=== PATIENT | female | born 1975 | race Caucasian/White ===

== ENCOUNTER 2020-12-18 07:27 | Outpatient (CLI) | payer OTHER, SELFPAY ==
--- NOTE | 2020-12-18 07:32 | USCV_ITS ---
Ml Newton Age: 45 Gender: F : 1975 Exam Date: 12/18/2020 07:57 Ordering Phys: Vamshi Saenz DO Technologist: Constanza Mcclellan Exam Location: [facility] Indication: PE HISTORY: PT has recent PE. PROCEDURES: The venous duplex Doppler examination of both lower extremities was performed in the standard fashion. The following venous structures were evaluated: common femoral vein, profunda vein, proximal portion of the greater saphenous vein, superficial femoral vein, and the popliteal vein In addition, the posterior tibial and peroneal trunk were evaluated on Left. FINDINGS: Normal 2-D Doppler and augmentation and compressibility throughout the lower extremity venous structures. Additional imaging through the proximal calf veins also reveals no thrombus. Limited evaluation of the greater saphenous vein is patent with no thrombus. CONCLUSIONS No DVT bilateral lower extremities. Dr. Luzma Ayala DO (Electronically Signed) Final Date: 18 December 2020 08:49 S
== END 2020-12-18 07:28 | disposition home or self-care (01) ==
LOC: RAD 07:30
PROVIDERS: PCP Electrodiagnostic Medicine; Visit Provider Electrodiagnostic Medicine
DX: I26.99 Other pulmonary embolism without acute cor pulmonale (principal)
CPT/HCPCS: 93970

== ENCOUNTER 2021-04-21 14:31 | Outpatient (CLI) | payer OTHER, SELFPAY ==
--- NOTE | 2021-04-21 14:38 | XR_ITS ---
WS: [id number] Exam: XR chest 2V* [id number] Date/Time of Exam: 04/21/2021 2:38 PM Reason For Exam: ACUTE BRONCHITIS/DYSPNEA No priors. The lungs are clear and fully inflated. Normal cardiomediastinal silhouette. No pleural ef fusions. Calcified granuloma in the left lower lung zone. Regional bony elements are intact. XR/XR chest 2V* [id number] IMPRESSION: 1. No acute cardiopulmonary finding.
== END 2021-04-21 14:32 | disposition home or self-care (01) ==
PROVIDERS: PCP Electrodiagnostic Medicine; Visit Provider Electrodiagnostic Medicine
DX: J20.9 Acute bronchitis, unspecified (principal); R06.00 Dyspnea, unspecified
CPT/HCPCS: 71046

== ENCOUNTER 2021-06-08 14:33 | Outpatient (CLI) | payer OTHER, SELFPAY ==
--- NOTE | 2021-06-08 14:39 | CT_ITS ---
WS: [id number] CT CHEST ANGIOGRAPHY WITH REFORMATS HISTORY: PULMONARY EMBOLISM/TACHYCARDIA/DYSPNEA TECHNIQUE: Contiguous axial images are obtained through the chest during arterial injection of intrav enous contrast. Images are reconstructed to evaluate the pulmonary arteries. MIP imaging also reviewe d. All CT scans at [facility] use at least one of these dose optimization techniques: automat ed exposure control; mA and/or kV adjustment per patient size (includes targeted exams where dose is matched to clinical indication); or iterative reconstruction. CONTRAST: Omnipaque 350; 75 mL IV. DLP: 1054.28 mGy.cm COMPARISON: None available. Very good opacification of the pulmonary artery. There is no pulmonary emboli. Normal size pulmonary artery. Normal thoracic aorta. Heart size is normal. No RIGHT heart strain. No pericardial or pleural effusions. Benign granuloma LEFT lower lobe. No pneumonia. No mediastinal or hilar adenopathy. Bovine arch. Hepatic steatosis along the falciform ligament. The remaining upper abdomen is negative. CT/CT angio chest PE protcl [id number] IMPRESSION: 1. No pulmonary embolism. 2. No pneumonia. 3. Normal heart.
[2021-06-08] MEDS: iohexol 350 mg/mL 100 mL Btl IV ×2 (15:02→15:04)
== END 2021-06-08 14:34 | disposition home or self-care (01) ==
LOC: RAD 14:37
PROVIDERS: PCP Electrodiagnostic Medicine; Visit Provider Electrodiagnostic Medicine
DX: I26.99 Other pulmonary embolism without acute cor pulmonale (principal); R00.0 Tachycardia, unspecified; M25.562 Pain in left knee; Z89.511 Acquired absence of right leg below knee; R06.00 Dyspnea, unspecified
CPT/HCPCS: 71275

== ENCOUNTER 2021-10-12 14:43 | Outpatient (CLI) | payer OTHER, SELFPAY ==
--- NOTE | 2021-10-12 14:50 | MM_ITS ---
WS: [id number] BILATERAL 3D TOMOSYNTHESIS DIGITAL SCREENING MAMMOGRAPHY WITH CAD CLINICAL INFORMATION: SCREENING HISTORY: Screening mammogram. No current complaints. COMPARISON: TECHNIQUE: Bilateral CC and MLO views. FINDINGS: The breasts are composed of heterogeneous fibroglandular density tissue, which can limit the detectio n of small underlying mass lesions. A few incidental punctate calcifications. Vascular calcification. No suspicious mass, asymmetry, calcifications, or architectural distortion. No evidence of malignanc y. MM/[place] [id number] IMPRESSION: BI-RADS: 2-Benign FOLLOW UP: 1 Year Follow-up Recommend return to annual screening mammography.
== END 2021-10-12 14:44 | disposition home or self-care (01) ==
LOC: RAD 14:48
PROVIDERS: PCP Electrodiagnostic Medicine; Visit Provider Electrodiagnostic Medicine
DX: Z12.31 Encounter for screening mammogram for malignant neoplasm of breast (principal)
CPT/HCPCS: 77063; 77067

== ENCOUNTER 2022-08-01 07:55 | Outpatient (CLI) | payer MEDICAID, SELFPAY ==
--- NOTE | 2022-08-01 08:06 | NM_ITS ---
WS: [id number] THREE-PHASE BONE SCAN HISTORY: LEFT KNEE PAIN COMPARISON: LEFT knee radiograph 05/24/2022 Patient is is injected with 26.1 mCi Tc99m HDP intravenously. Immediate angiographic phase imaging is performed over the area of concern. Static blood pool imaging also performed. Two-hour whole-body sc intigrams performed in anterior and posterior projections. Additional large field of view imaging sub mitted as necessary. Angiographic and blood pool phase imaging is normal. No asymmetry involving the knee joints. Patient has a [id number] amputation on the RIGHT. By history recent surgery involving the RIGHT a mputation. There is a focal area of increased uptake at the RIGHT amputation site which may be from r ecent debridement. Correlate with recent procedure. On the two-hour delayed imaging there is very slight increased uptake involving the LEFT femoral cond yles and along the tibial plateau. There is no increased uptake along the tip of the LEFT tibial exte nsion. Normal soft tissue uptake. Normal activity in the kidneys. NM/NM bone 3 phase [id number] IMPRESSION: 1. No osteomyelitis or cellulitis LEFT knee prosthesis. 2. There minimal uptake around the prosthesis of the LEFT knee. This can be se en in recent postoperative states. Increased uptake can be evident greater than a year post procedure. Mild early loosening may appear similar. No lucency radha rounding the prosthesis on the recent radiograph from 06/01/2022. 3. Focal increased uptake involving the tip of the RIGHT below the knee prosth esis. May be due to recent procedure such as debridement.
== END 2022-08-01 07:56 | disposition home or self-care (01) ==
LOC: RAD 08:03
PROVIDERS: PCP Electrodiagnostic Medicine; Visit Provider Orthopaedic Surgery
DX: M17.11 Unilateral primary osteoarthritis, right knee (principal)
CPT/HCPCS: 78315; A9561

== ENCOUNTER 2022-12-16 06:00 | Outpatient (CLI) | payer MEDICAID, SELFPAY | END 2022-12-16 06:01 | disposition home or self-care (01) | LOC: SPT 12-19 13:28 | PROVIDERS: PCP Electrodiagnostic Medicine; Visit Provider Nurse Practitioner Family | DX: Z46.89 Encounter for fitting and adjustment of other specified devices (principal); S52.124D Nondisplaced fracture of head of right radius, subsequent encounter for closed fracture with routine healing; X58.XXXD Exposure to other specified factors, subsequent encounter | CPT/HCPCS: 97760; L3761 ==

== ENCOUNTER → 2022-12-16 10:36 | Outpatient (BNVA) | payer MEDICAID, SELFPAY | PROVIDERS: PCP Electrodiagnostic Medicine; Visit Provider Nurse Practitioner Family | DX: S52.121A Displaced fracture of head of right radius, initial encounter for closed fracture (principal); W17.89XA Other fall from one level to another, initial encounter | CPT/HCPCS: 73070 ==

== ENCOUNTER → 2022-12-29 10:40 | Outpatient (BNVA) | payer MEDICAID, SELFPAY | PROVIDERS: PCP Electrodiagnostic Medicine; Visit Provider Nurse Practitioner Family | DX: S52.121A Displaced fracture of head of right radius, initial encounter for closed fracture (principal); X58.XXXA Exposure to other specified factors, initial encounter | CPT/HCPCS: 73080; 73110 ==

== ENCOUNTER → 2023-01-19 10:13 | Outpatient (BNVA) | payer MEDICAID, SELFPAY | PROVIDERS: PCP Electrodiagnostic Medicine; Visit Provider Nurse Practitioner Family | DX: S52.121A Displaced fracture of head of right radius, initial encounter for closed fracture (principal); S62.001A Unspecified fracture of navicular [scaphoid] bone of right wrist, initial encounter for closed fracture; X58.XXXA Exposure to other specified factors, initial encounter | CPT/HCPCS: 73070; 73110 ==

== ENCOUNTER → 2023-02-16 10:13 | Outpatient (BNVA) | payer MEDICAID, SELFPAY | PROVIDERS: PCP Electrodiagnostic Medicine; Visit Provider Nurse Practitioner Family | DX: S52.121A Displaced fracture of head of right radius, initial encounter for closed fracture (principal); S62.001A Unspecified fracture of navicular [scaphoid] bone of right wrist, initial encounter for closed fracture; X58.XXXA Exposure to other specified factors, initial encounter | CPT/HCPCS: 73070; 73110 ==

== ENCOUNTER → 2023-03-23 11:25 | Outpatient (BNVA) | payer MEDICAID, SELFPAY | PROVIDERS: PCP Electrodiagnostic Medicine; Visit Provider Nurse Practitioner | DX: S62.024D Nondisplaced fracture of middle third of navicular [scaphoid] bone of right wrist, subsequent encounter for fracture with routine healing; S52.124D Nondisplaced fracture of head of right radius, subsequent encounter for closed fracture with routine healing; M77.11 Lateral epicondylitis, right elbow; W10.9XXD Fall (on) (from) unspecified stairs and steps, subsequent encounter | CPT/HCPCS: 73070; 73110 ==

== ENCOUNTER 2023-06-29 08:19 | Emergency (ER) | payer MEDICAID, SELFPAY ==
--- NOTE | 2023-06-29 08:22 | XR_ITS ---
WS: [id number] XR knee LT 3V* [id number] REASON FOR EXAM: pain FINDINGS: Total left knee arthroplasty. Compared to the previous examination of 06/01/2022, medially there is a small bony fragment adjacent to the femoral component of the total left knee arthroplasty. The arthroplasty is otherwise unchanged . Periprosthetic. Fracture of the distal left femur as above.
[2023-06-29 08:30] VITALS: BP 126/93; PULSE 84; RESP 17; TEMP 36.7; O2SAT 98
--- NOTE | 2023-06-29 08:55 | ED_ITS ---
HPI - Extremity Problem 2 General: Chief complaint: Extremity Problem,Nontraumatic Stated complaint: left knee pain Time Seen by Provider: 06/29/23 08:21 Source: patient Mode of arrival: other (crutches) History of Present Illness: 47-year-old female presents emergency ro om with severe left knee pain. She previous had an arthroplasty done several years ago about 13 months ago she had some pain and was seen in the emergency room x-ray did not show any significant abnormalities she subsequently had a bone scan done in July 2022 that also was essentially normal. No recent trauma just began to hurt she took some pain medications seem to be getting better and then today when she woke up it was severe pain again she has a full leg hinged knee brace on and reports severe pain she has been using crutches to ambulate. No trauma no fall no back pain no radiation of pain down pain down the legs no difficulty with bowel or bladder no rash redness or erythema cuts or abrasions. No chest pain tightness or short of breath MD Complaint: joint pain Pain Consistency: constant Associated symptoms: Deny chest pain, fever(s), rash or short of breath Review of Systems 2 Const: Denies: fever(s) or chills Card: Denies: chest pain Resp: Denies: dyspnea GI: Denies: abdominal pain Musc: Denies: neck pain or back pain Skin/Breast: Denies: rash Physical Exam 2 Const: GENERAL APPEARANCE: cooperative and comfortable O RIENTATION/CONSCIOUSNESS: Yes awake, Yes oriented to person, Yes oriented to place and Yes oriented to time HENMT: COMMON NORMALS: normocephalic, atraumatic and hearing grossly normal bilaterally HEAD & SCALP: normocephalic and atraumatic Resp: COMMON NORMALS: normal respiratory effort, No retractions, No use of accessory muscles and clear to auscultation bilaterally AUSCULTATION: clear to auscultation bilaterally Cardio: COMMON NORMALS: regular rate, regular rhythm and No murmurs present (Cardio) RATE: regular rate RHYTHM: regular rhythm Extremity: COMMON NORMALS: normal to inspection, capillary refill normal, no clubbing, cyanosis or edema, no calf tenderness and no pedal edema OTHER: No evidence of external infection induration abrasion or laceration no deformity no rash scar present from previous knee arthroplasty is otherwise unremarkable. Exquisitely tender on the medial aspect of the knee no fluctuance. Neuro: SENSORIUM/ORIENTATION: Yes oriented to person, Yes oriented to place and Yes oriented to time Skin: COMMON NORMALS: no rashes or lesions noted GENERAL SKIN EXAM: no rashes or lesions noted Course 2 Vital Signs: Vital signs: Vital Signs Temperature 98.0 F 06/29/23 08:30 Pulse Rate 84 06/29/23 08:30 Respiratory Rate 14 06/29/23 09:53 Blood Pressure 126/93 06/29/23 08:30 Pulse Oximetry 96 06/29/23 09:53 Oxygen Delivery Me thod Room Air 06/29/23 08:30 MDM - Extremity (Nontraumatic) Medical Decision Making Severe left knee pain there is no sign externally of abrasion or laceration no redness erythema or induration. No recent trauma. Does look to be along the medial femoral condyle a small avulsion of bone but it appears to be old. It was not present in May 2022 her last knee x-ray. CBC and sed rate are normal. At this point I do not know if there is much more we can offer she is already nonweightbearing on crutches and has a better knee brace and we usually use in the form of immobilizer. Continue nonweightbearing in knee immobilizer recommend she follow-up with her orthopedic surgeon. She is going to leave here and see Dr. Vamshi Saenz at his clinic to see if he can expedite referral to her orthopedic surgeon who did the arthroplasty. Medical Records I reviewed the patient's medical records. Lab Data I reviewed the patient's lab results. 06/29/23 09:38 06/29/23 09:38 Laboratory Results WBC 7.04 10^3/uL (3.29-11.43) 06/29/23 09:38 RBC 4.87 10^6/uL (3.85-5.65) 06/29/23 09:38 Hgb 15.00 g/dL (11.27-16.99) 06/29/23 09:38 Hct 42.7 % (36-47) 06/29/23 09:38 MCV 87.7 fl (85-98) 06/29/23 09:38 MCH 30.8 pg (27-33) 06/29/23 09:38 MCHC 35.1 g/dL (30-55) 06/29/23 09:38 RDW 13.3 % (12.1-15.1) 06/29/23 09:38 Plt Count 262 10^3/cmm (157-399) 06/29/23 09:38 MPV 9.8 fL (7.4-10.4) 06/29/23 09:38 Neut % (Auto) 68.8 % 06/29/23 09:38 Lymph % (Auto) 24.4 % 06/29/23 09:38 [place] % (Auto) 5.4 % 06/29/23 09:38 Eos % (Auto) 0.6 % 06/29/23 09:38 Baso % (Auto) 0.4 % 06/29/23 09:38 Neut # (Auto) 4.84 10^3/uL (1.8-7.7) 06/29/23 09:38 Lymph # (Auto) 1.7 10^3/uL (0.8-4.8) 06/29/23 09:38 [place] # (Auto) 0.4 10^3/uL (0.2-0.9) 06/29/23 09:38 Eos # (Auto) 0.0 10^3/uL (0.0-0.8) 06/29/23 09:38 Baso # (Auto) 0.0 10^3/uL (0.0-0.1) 06/29/23 09:38 Nucleated RBC % (auto) 0 % 06/29/23 09:38 Nucleated RBCs # 0.0 /100WBC 06/29/23 09:38 ESR 12 mm/hr (0-15) 06/29/23 09:38 Sodium 138 mmol/L (136-145) 06/29/23 09:38 Potassium 4.5 mmol/L (3.5-5.1) 06/29/23 09:38 Chloride 101 mmol/L (98-107) 06/29/23 09:38 Carbon Dioxide 25 mmol/L (22-29) 06/29/23 09:38 Anion Gap 16.5 (5-19) 06/29/23 09:38 BUN 11 mg/dL (6-20) 06/29/23 09:38 Creatinine 0.7 mg/dL (0.5-0.9) 06/29/23 09:38 GFR Calculation 90.1 mL/min (90-130) 06/29/23 09:38 Glucose 104 mg/dL (65-115) 06/29/23 09:38 Calculated Osmolality 286 mOsm/kg (285-295) 06/29/23 09:38 Calcium 9.5 mg/dL (8.5-10.5) 06/29/23 09:38 C-Reactive Protein 3.8 mg/L (0.0-4.9) 06/29/23 09:38 XR interpretation done by ED provider, pending radiology final review Discharge Plan Discharge Patient Disposition: Home Clinical Impression: Acute pain of left knee, History of arthroplasty of left knee Condition: Stable Prescriptions: No Action pregabalin 200 mg capsule 200 mg PO DAILY tramadol 50 mg tablet 50 mg PO BID (DME) Hinged Elbow Brace See Rx Instructions .Route .MEDSUPPLY Qty: 1 0RF Rx Instructions: As directed escitalopram oxalate 10 mg tablet 10 mg PO DAILY Flexeril 5 mg Tablet 5 mg PO TID PRN (Reason: MUSCLE SPASMS) metoprolol tartrate 25 mg tablet 25 mg PO DAILY Discharge Orders: Discharge ED (Routine); Ordered 06/29/23 Ordered By: Kelechi Moran Referrals: Vamshi Saenz, [Primary Care Provider] - Discharge Diet: Usual diet Discharge Activity: Limit activity as instructed Patient Instructions: Opioid Safety, Pain Management Activity Restrictions/Additional Instructions: Thank you for choosing [facility] for your healthcare needs today. Please realize this is an emergency room and that we are providing you with a medical screening exam and this may not be complete and all inclusive of all the testing and or work up that you may need to determine your ailment or severity of your illness. It is very important that you follow up as instructed or that you return to the Emergency Department should you have concerns or if your condition changes or worsens in any way. Follow-up with Dr. Bonds and Ran Saenz as we discussed. The labs that were drawn today have not yet resulted I did call Dr. Vamshi Saenz he is planning on reviewing those for you and making referral to Dr. Ran Saenz regarding her knee pain Coding Level of Care Code ED Sociology Instructor for Bernardino Page
[2023-06-29 09:45] LABS: Basophils % 0.4 %; Eosinophils % 0.6 %; Hematocrit 42.7 % (36-47); Lymphocytes # 1.7 10^3/uL (0.8-4.8); Lymphocytes % 24.4 %; Mean Corpuscular HGB Conc 35.1 g/dL (30-55); Mean Corpuscular Hemoglobin 30.8 pg (27-33); Mean Corpuscular Volume 87.7 fl (85-98); Mean Platelet Volume 9.8 fL (7.4-10.4); Monocytes # 0.4 10^3/uL (0.2-0.9); Monocytes % 5.4 %; Neutrophils # 4.84 10^3/uL (1.8-7.7); Neutrophils % 68.8 %; Nucleated Red Blood Cells % 0 %; Platelet Count 262 10^3/cmm (157-399); Red Blood Count 4.87 10^6/uL (3.85-5.65); Red Cell Distribution Width 13.3 % (12.1-15.1); White Blood Count 7.04 10^3/uL (3.29-11.43)
[2023-06-29 09:49] LABS: Erythrocyte Sedimentation Rate 12 mm/hr (0-15)
[2023-06-29 09:53] VITALS: RESP 14; O2SAT 96
[2023-06-29] MEDS: morphine 4 mg/mL SDV 1 mL IM (09:53)
[2023-06-29 10:01] LABS: Anion Gap 16.5 (5-19); Blood Urea Nitrogen 11 mg/dL (6-20); C Reactive Protein 3.8 mg/L (0.0-4.9); Calcium 9.5 mg/dL (8.5-10.5); Carbon Dioxide 25 mmol/L (22-29); Chloride 101 mmol/L (98-107); Creatinine Clr Calc Pharmacy 104.4933; Glomerular Filtration Rate 90.1 mL/min (90-130); Glucose 104 mg/dL (65-115); Osmolality Calculated 286 mOsm/kg (285-295); Potassium 4.5 mmol/L (3.5-5.1); Sodium 138 mmol/L (136-145)
== END 2023-06-29 10:00 | disposition home or self-care (01) ==
PROVIDERS: Emergency Provider Family Medicine; PCP Electrodiagnostic Medicine
DX: M25.562 Pain in left knee (principal); Z96.652 Presence of left artificial knee joint
CPT/HCPCS: 36415; 73562; 80048; 85025; 85651; 86140; 96372; 99284; J2270

== ENCOUNTER 2024-04-02 08:55 | Outpatient (CLI) | payer MEDICAID, SELFPAY ==
--- NOTE | 2024-04-02 08:58 | MM_ITS ---
WS: [id number] BILATERAL 3D TOMOSYNTHESIS DIGITAL SCREENING MAMMOGRAPHY WITH CAD CLINICAL INFORMATION: SCREENING HISTORY: Screening mammogram. No current complaints. COMPARISON: 2021 TECHNIQUE: Bilateral CC and MLO views. FINDINGS: The breasts are composed of heterogeneous fibroglandular density tissue, which can limit the detectio n of small underlying mass lesions. No suspicious mass, asymmetry, calcifications, or architectural d istortion. No evidence of malignancy. MM/MM [facility] tomosynthesis [id number] IMPRESSION: DENSITY: The breasts are heterogeneously dense, which may obscure small masses. BI-RADS: 1 - Negative FOLLOW UP: 1 Year Follow-up Recommend return to annual screening mammography.
== END 2024-04-02 08:56 | disposition home or self-care (01) ==
LOC: RAD 08:56
PROVIDERS: PCP Electrodiagnostic Medicine; Visit Provider Electrodiagnostic Medicine
DX: Z12.31 Encounter for screening mammogram for malignant neoplasm of breast (principal); R92.333 Mammographic heterogeneous density, bilateral breasts
CPT/HCPCS: 77063; 77067

== ENCOUNTER 2024-04-12 13:58 | Emergency (ER) | payer MEDICARE, SELFPAY ==
--- NOTE | 2024-04-12 14:04 | XR_ITS ---
WS: [id number] XR chest 1V portable [id number] REASON FOR EXAM: sob FINDINGS: The chest is unchanged compared to 04/21/2021. The heart and the mediastinum are within normal limits. Calcified granulomas disease in both hemithoraces. No acute pulmonary parenchymal or pleural abnormality. Bony thorax is intact without significant abnormality. XR/XR chest 1V portable [id number] IMPRESSION: No acute chest abnormality.
[2024-04-12 14:09] VITALS: BP 151/88; PULSE 87; RESP 18; TEMP 36.1; O2SAT 100; BMI 34.0
--- NOTE | 2024-04-12 14:15 | ECG_ITS ---
[facility] Test Date: 2024-04-12 Pat Name: Ml Newton Department: Room: Gender: Female Filtrose Crusher: : 1975 Requested By: Kelechi Small Order Number: [id number] Jluis MD: Teresa Peterson M.D. Measurements Intervals Shirley Rate: 75 P: 62 TN: 144 QRS: 65 QRSD: 89 T: 56 QT: 375 QTc: 421 Interpretive Statements SINUS RHYTHM No previous ECG available for comparison Electronically Signed On 04-12-2024 18:00:56 ACCOUNT MANAGER SALES REPRESENTATIVE by Teresa Peterson M.D. [email or web address]
--- NOTE | 2024-04-12 14:44 | ED_ITS ---
HPI - SOB/Dyspnea 2 General: Chief Complaint: Shortness of Breath/Dyspnea Stated Complaint: SOB Time Seen by Provider: 04/12/24 14:39 History of Present Illness: HPI Narrative: 48-year-old female [facility] complaining of shortness of breath and frequent cough. She had some respiratory symptoms was seen earlier this hide was a viral infection she did not treat with antibiotic she has not had a productive cough has had a low-grade fever myalgias. The coughing has been persistent it is improved by albuterol. No hemoptysis. She previously had pulmonary emboli associated with a COVID infection she is not currently on any anticoagulation no other history of PE or DVT Associated symptoms: Deny abdominal pain, chest pain or fever(s) Related Data Home Medications Medication Instructions Recorded Confirmed pregabalin 200 mg capsule 200 mg PO DAILY 12/16/22 04/12/24 tramadol 50 mg tablet 50 mg PO BID 12/16/22 04/12/24 metoprolol tartrate 25 mg tablet 25 mg PO DAILY 06/29/23 04/12/24 duloxetine 60 mg capsule,delayed 60 mg PO DAILY 04/12/24 04/12/24 release Previous Rx's Medication Instructions Recorded Hinged Elbow Brace #1 ea 12/16/22 albuterol sulfate 90 mcg/actuation 2 inh inhalation Q4H PRN shortness 04/12/24 aerosol inhaler of breath or wheezing #18 grams prednisone 20 mg tablet 20 mg PO TID #15 tabs 04/12/24 Allergies Allergy/AdvReac Type Severity Reaction Status Date / Time adhesive Allergy ALGY-Bliste Verified 04/12/24 14:16 r iodine Allergy ALGY-Hives Verified 04/12/24 14:16 levofloxacin [From Levaquin] Allergy ALGY-Hives Verified 04/12/24 14:16 nitrofurantoin Allergy ALGY-Hives Verified 04/12/24 14:16 [From Macrobid] shellfish Allergy ALGY-Bliste Uncoded 04/12/24 14:16 r Review of Systems 2 Const: Denies: fever(s) or chills Card: Denies: chest pain Resp: Denies: dyspnea GI: Denies: abdominal pain : Denies: dysuria, urinary frequency or urinary urgency Musc: Denies: neck pain or back pain Skin/Breast: Denies: rash PFSH ED 2 PFSH: Medical History (Updated 04/12/24 @ 17:41 by Kelechi Moran DO) Pulmonary embolism Associated with COVID-19 infection Physical Exam 2 Const: GENERAL APPEARANCE: cooperative ORIENTATION/CONSCIOUSNESS: Yes awake, Yes oriented to person, Yes oriented to place and Yes oriented to time HENMT: COMMON NORMALS: normocephalic, atraumatic and hearing grossly normal bilaterally HEAD & SCALP: normocephalic and atraumatic Resp: COMMON NORMALS: normal respiratory effort, No retractions, No use of accessory muscles and clear to auscultation bilaterally AUSCULTATION: clear to auscultation bilaterally Cardio: COMMON NORMALS: regular rate, regular rhythm and No murmurs present (Cardio) RATE: regular rate RHYTHM: regular rhythm GI: COMMON NORMALS: Soft to palpation and No hepatosplenomegaly present A USCULTATION: Yes normoactive bowel sounds PALPATION: Yes Soft to palpation, No Tenderness to palpation present (GI), No Guarding due to palpation present (GI) and Yes No hepatosplenomegaly present Extremity: COMMON NORMALS: normal to inspection, capillary refill normal, no clubbing, cyanosis or edema, no calf tenderness and no pedal edema Neuro: SENSORIUM/ORIENTATION: Yes oriented to person, Yes oriented to place and Yes oriented to time Skin: COMMON NORMALS: no rashes or lesions noted GENERAL SKIN EXAM: no rashes or lesions noted Course 2 Vital Signs: Vital signs: Vital Signs Temperature 97 F L 04/12/24 14:09 Pulse Rate 90 04/12/24 16:01 Respiratory Rate 16 04/12/24 15:54 Blood Pressure 132/85 04/12/24 15:21 Pulse Oximetry 96 04/12/24 15:54 Oxygen Delivery Me thod Room Air 04/12/24 15:54 MDM - SOB/Dyspnea Medical Decision Making D-dimer negative chest x-ray does not show any acute infection laboratory test otherwise unremarkable vital signs normal. This point triggers a postinfectious bronchospasm start oral steroid taper tomorrow. She received steroids here in nebulizer treatment which did seem to improve her symptoms discharged home with an albuterol inhaler to use regularly as well if she notes worsening of her symptoms as she tapers off of her steroid should follow-up with her primary care doctor for further treatment options Medical Records I reviewed the patient's medical records. Lab Data I reviewed the patient's lab results. 04/12/24 15:15 04/12/24 15:15 Labs/Radiology: Radiology Impressions Chest X-Ray 04/12/24 14:04 IMPRESSION: No acute chest abnormality. Laboratory Results WBC 8.87 10^3/uL (3.29-11.43) 04/12/24 15:15 RBC 4.83 10^6/uL (3.85-5.65) 04/12/24 15:15 Hgb 14.60 g/dL (11.27-16.99) 04/12/24 15:15 Hct 42.9 % (36-47) 04/12/24 15:15 MCV 88.8 fl (85-98) 04/12/24 15:15 MCH 30.2 pg (27-33) 04/12/24 15:15 MCHC 34.0 g/dL (30-55) 04/12/24 15:15 RDW 13.2 % (12.1-15.1) 04/12/24 15:15 Plt Count 265 10^3/cmm (157-399) 04/12/24 15:15 MPV 10.1 fL (7.4-10.4) 04/12/24 15:15 Neut % (Auto) 70.6 % 04/12/24 15:15 Lymph % (Auto) 23.8 % 04/12/24 15:15 [place] % (Auto) 3.7 % 04/12/24 15:15 Eos % (Auto) 1.4 % 04/12/24 15:15 Baso % (Auto) 0.3 % 04/12/24 15:15 Neut # (Auto) 6.26 10^3/uL (1.8-7.7) 04/12/24 15:15 Lymph # (Auto) 2.1 10^3/uL (0.8-4.8) 04/12/24 15:15 [place] # (Auto) 0.3 10^3/uL (0.2-0.9) 04/12/24 15:15 Eos # (Auto) 0.1 10^3/uL (0.0-0.8) 04/12/24 15:15 Baso # (Auto) 0.0 10^3/uL (0.0-0.1) 04/12/24 15:15 Nucleated RBC % (auto) 0 % 04/12/24 15:15 Nucleated RBCs # 0.0 /100WBC 04/12/24 15:15 D-Dimer 0.37 ug/mLFEU (0-0.59) 04/12/24 15:15 Sodium 137 mmol/L (136-145) 04/12/24 15:15 Potassium 4.1 mmol/L (3.5-5.1) 04/12/24 15:15 Chloride 100 mmol/L (98-107) 04/12/24 15:15 Carbon Dioxide 26 mmol/L (22-29) 04/12/24 15:15 Anion Gap 15.1 (5-19) 04/12/24 15:15 BUN 14 mg/dL (6-20) 04/12/24 15:15 Creatinine 0.7 mg/dL (0.5-0.9) 04/12/24 15:15 GFR Calculation 89.7 mL/min (90-130) L 04/12/24 15:15 Glucose 111 mg/dL (65-115) 04/12/24 15:15 Calculated Osmolality 285 mOsm/kg (285-295) 04/12/24 15:15 Calcium 8.9 mg/dL (8.5-10.5) 04/12/24 15:15 Total Bilirubin 0.3 mg/dL (0.15-1.2) 04/12/24 15:15 AST 21 U/L (0-32) 04/12/24 15:15 ALT 21 U/L (0-33) 04/12/24 15:15 Alkaline Phosphatase 100 U/L (35-105) 04/12/24 15:15 Total Protein 7.7 g/dL (6.6-8.7) 04/12/24 15:15 Albumin 4.2 g/dL (3.5-5.2) 04/12/24 15:15 Globulin 3.5 g/dL (1.3-4.6) 04/12/24 15:15 Coronavirus (PCR) Negative (Negative) 04/12/24 15:05 Influenza A (PCR) Negative (Negative) 04/12/24 15:05 Influenza Type B (PCR) Negative (Negative) 04/12/24 15:05 RSV (PCR) Negative (Negative) 04/12/24 15:05 All radiology interpretation(s) finalized by discharge Discharge Plan Discharge Patient Disposition: Home Clinical Impression: Post-infection bronchospasm Condition: Stable Prescriptions: New prednisone 20 mg tablet 20 mg PO TID Qty: 15 0RF Rx Instructions: 1 p.o. 3 times daily x3 days, 1 p.o. twice daily x2 days, 1 p.o. daily x2 days albuterol sulfate 90 mcg/actuation HFA aerosol inhaler 2 inh INHALATION Q4H PRN (Reason: shortness of breath or wheezing) Qty: 18 0RF No Action pregabalin 200 mg capsule 200 mg PO DAILY tramadol 50 mg tablet 50 mg PO BID (DME) Hinged Elbow Brace See Rx Instructions .Route .MEDSUPPLY Qty: 1 0RF Rx Instructions: As directed metoprolol tartrate 25 mg tablet 25 mg PO DAILY duloxetine 60 mg capsule,delayed release(DR/EC) 60 mg PO DAILY Discharge Orders: Discharge ED (Routine); Ordered 04/12/24 Ordered By: Kelechi Moran Referrals: Vamshi Saenz DO [Primary Care Provider] - Patient Instructions: Opioid Safety, Pain Management Activity Restrictions/Additional Instructions: Thank you for choosing [facility] for your healthcare needs today. It is very important that you follow up as instructed or that you return to the Emergency Department should you have concerns or if your condition changes or worsens in any way. You were seen in the emergency room for shortness of breath and cough. Your chest x-ray was normal and D-dimer was normal other laboratory test did not show any signs of acute infection. Suspect you may have postinfectious bronchospasm where you will have asthma-like symptoms after having an infection. Recommend a course of oral steroids to begin tomorrow you are given IV steroids in the emergency room you can also use albuterol as needed. If your symptoms are not improving or you notice that they worsen as you taper off the steroid you should follow-up with your primary care doctor for further treatment options Coding Level of Care Code ED Distributor Advertising Material for Bernardino Page
[2024-04-12] MEDS: methylPREDNISolone sod succ 125 mg/2 mL INJ IVP (15:16)
[2024-04-12 15:21] VITALS: BP 132/85; PULSE 100; O2SAT 100
[2024-04-12 15:22] LABS: Basophils % 0.3 %; Eosinophils # 0.1 10^3/uL (0.0-0.8); Eosinophils % 1.4 %; Hematocrit 42.9 % (36-47); Lymphocytes # 2.1 10^3/uL (0.8-4.8); Lymphocytes % 23.8 %; Mean Corpuscular Hemoglobin 30.2 pg (27-33); Mean Corpuscular Volume 88.8 fl (85-98); Mean Platelet Volume 10.1 fL (7.4-10.4); Monocytes # 0.3 10^3/uL (0.2-0.9); Monocytes % 3.7 %; Neutrophils # 6.26 10^3/uL (1.8-7.7); Neutrophils % 70.6 %; Nucleated Red Blood Cells % 0 %; Platelet Count 265 10^3/cmm (157-399); Red Blood Count 4.83 10^6/uL (3.85-5.65); Red Cell Distribution Width 13.2 % (12.1-15.1); White Blood Count 8.87 10^3/uL (3.29-11.43)
[2024-04-12 15:37] LABS: D Dimer 0.37 ug/mLFEU (0-0.59)
[2024-04-12 15:49] LABS: Alanine Aminotransferase 21 U/L (0-33); Albumin Level 4.2 g/dL (3.5-5.2); Alkaline Phosphatase 100 U/L (35-105); Anion Gap 15.1 (5-19); Aspartate Amino Transferase 21 U/L (0-32); Blood Urea Nitrogen 14 mg/dL (6-20); Calcium 8.9 mg/dL (8.5-10.5); Carbon Dioxide 26 mmol/L (22-29); Chloride 100 mmol/L (98-107); Creatinine Clr Calc Pharmacy 107.8223; Globulin 3.5 g/dL (1.3-4.6); Glomerular Filtration Rate 89.7 mL/min (90-130); Glucose 111 mg/dL (65-115); Osmolality Calculated 285 mOsm/kg (285-295); Potassium 4.1 mmol/L (3.5-5.1); Sodium 137 mmol/L (136-145); Total Bilirubin 0.3 mg/dL (0.15-1.2); Total Protein 7.7 g/dL (6.6-8.7)
[2024-04-12] MEDS: ipratropium-albuterol 3 mL Neb INHALATION (15:51)
[2024-04-12 15:54] VITALS: PULSE 96; RESP 16; O2SAT 96
[2024-04-12 16:01] VITALS: PULSE 90
[2024-04-12 16:56] LABS: Influenza A NEGATIVE (Negative); Influenza B NEGATIVE (Negative); Respiratory Syncytial Virus Ce NEGATIVE (Negative)
[2024-04-12 16:59] LABS: Covid PCR Negative (Negative)
[2024-04-12 17:57] VITALS: BP 124/75; PULSE 96; O2SAT 95
== END 2024-04-12 18:04 | disposition home or self-care (01) ==
PROVIDERS: Emergency Provider Family Medicine; PCP Electrodiagnostic Medicine
DX: J98.01 Acute bronchospasm (principal); Z11.52 Encounter for screening for COVID-19; Z86.711 Personal history of pulmonary embolism
CPT/HCPCS: 0241U; 71045; 80053; 85025; 85378; 93005; 94640; 96374; 99285; J2919

== ENCOUNTER 2024-11-06 14:20 | Outpatient (CLI) | payer MEDICARE, MEDICAID, SELFPAY ==
--- NOTE | 2024-11-06 14:27 | CT_ITS ---
WS: [id number] CT ABDOMEN AND PELVIS WITH AND WITHOUT CONTRAST HISTORY: PYELONEPHRITIS TECHNIQUE: Unenhanced 5 mm axial imaging first performed through the abdomen. Post contrast imaging through the abdomen and pelvis. Oral contrast has not been provided. Sagittal and coronal reformats are submitted. All CT scans at [facility] use at least one of these dose optimization techniques: automated exposure control; mA and/or kV adjustment per patient size (includes targeted exams where dose is matched to clinical indication); or iterative reconstruction. CONTRAST: Omnipaque 350; 95 mL IV. DLP: 1313.57 mGy.cm COMPARISON: 02/23/2011 Calcified granuloma LEFT lung base. Normal size heart. Small hiatal hernia. RIGHT kidney: Normal size. No obstruction or calcification. No mass. LEFT kidney: Normal size with no renal calcification. No perinephric stranding. No mass or obstruction. Prior cholecystectomy. Normal liver and spleen. Normal pancreas. Normal adrenal glands. Normal aorta. Minimally distended stomach. No small bowel obstruction. Moderate diffuse constipation. Normal appendix. Numerous diverticula in the descending and sigmoid colon. There is a short segment stricture measuring 2.4 cm in the proximal sigmoid colon. Narrowing of the lumen with mild wall enhancement. No mass identified. Rectosigmoid anastomotic sutures. No recurrent mass or obstruction at the sutures. Elliptical collection in the infraumbilical abdominal wall musculature measures 7.4 x 2.0 cm. This collection was also present in 2010 and appear to be resolving postoperative seroma. Prior hysterectomy. LEFT ovarian follicle. Sclerotic focus in the LEFT sacrum is most likely a bone island. CT/CT abdomen pelvis wo/w [id number] IMPRESSION: 1. No renal obstruction or perinephric stranding. No pyelonephritis evident by CT. 2. Short segment narrowing in the proximal sigmoid colon extends over a length of 2.4 cm. Suspect this is a mild stricture with wall enhancement. Colonoscopy may be of benefit. 3. Sigmoid diverticulosis without acute diverticulitis. 4. Stable rectosigmoid anastomosis. 5. Normal appendix.
[2024-11-06] MEDS: iohexol 350 mg/mL 500 mL Btl (per mL) IV (15:20)
== END 2024-11-06 14:21 | disposition home or self-care (01) ==
PROVIDERS: PCP Electrodiagnostic Medicine; Visit Provider Electrodiagnostic Medicine
DX: N12 Tubulo-interstitial nephritis, not specified as acute or chronic (principal); R93.89 Abnormal findings on diagnostic imaging of other specified body structures; K57.30 Diverticulosis of large intestine without perforation or abscess without bleeding; Z98.890 Other specified postprocedural states; J84.10 Pulmonary fibrosis, unspecified; K44.9 Diaphragmatic hernia without obstruction or gangrene; K59.00 Constipation, unspecified
CPT/HCPCS: 74178